=== PATIENT | female | born 1965 | race Caucasian/White ===

== ENCOUNTER 2017-11-25 20:52 | Emergency (ER) | payer BC ==
[2017-11-25 21:12] LABS: Bilirubin Negative (Negative); Blood, Urine Trace (Negative); Clarity CLEAR (Clear); Glucose, Urine (Dipstick) Negative (Negative); Leukocyte Moderate (Negative); Nitrite Negative (Negative); Protein, Urine (Dipstick) Negative (Neg-Trace); Specific Gravity, Urine 1.014 (1.002-1.036); Urobilinogen 0.2 mg/dL (0.2-1.0)
[2017-11-25 21:14] LABS: Bacteria/HPF None Seen HPF (None Seen); Hyaline Casts/LPF 0-3 HYALINE CAST LPF (0-3 Hyaline); Pathc Cast-AUWi Flag 0.43 (0-2.49); Squamous Epithelial 0-3 HPF (0-3)
[2017-11-25] MEDS ORDERED: Ketorolac Tromethamine 30 MG/ML VIAL ONE (21:20)
[2017-11-25 21:28] LABS: #Basophils 0.1 thou/uL (0.0-0.2); #Eosinphils 0.1 thou/uL (0.0-0.7); #Lymphocytes 1.4 thou/uL (1.20-3.40); #Monocytes 0.4 thou/uL (0.11-0.59); #Neutrophils 8.2 thou/uL (1.40-6.50); %Basophils 0.5 % (0.0-1.0); %Eosinophils 1.2 % (0.0-10.0); %Lymphocytes 13.8 % (21.0-51.0); %Monocytes 3.8 % (0.0-10.0); %Neutrophils 80.7 % (42.0-75.0); Hemoglobin 14.7 g/dL (12.0-16.0); Mean Corpuscular HGB CONC 34.1 g/dL (32.0-36.0); Mean Corpuscular Hemoglobin 28.1 pg (27.0-31.0); Mean Corpuscular Volume 82.6 fl (81.0-99.0); Mean Platelet Volume 7.5 fL (7.4-10.4); Platelet Count 280 thou/uL (130-400); RBC Distribution Width 12.5 % (11.5-14.5); Red Blood Cell (RBC) Count 5.22 mill/uL (4.20-5.40); White Blood Cell (WBC) Count 10.1 thou/uL (4.8-10.8)
[2017-11-25 21:48] LABS: ALT (SGPT) 58 U/L (8-55); AST (SGOT) 30 U/L (5-34); Albumin 4.5 g/dL (3.5-5.0); Alkaline Phosphatase 84 U/L (40-150); Anion Gap 14 mmol/L (10-20); BUN (Urea Nitrogen) 14 mg/dL (9.8-20.1); Bilirubin, Total 0.2 mg/dL (0.2-1.2); Calc. Creatinine Clearance 0 mL/min (70-130); Calcium 9.6 mg/dL (7.8-10.44); Carbon Dioxide 24 mmol/L (22-29); Chloride 104 mmol/L (98-107); Estimated GFR-MDRD 71; Globulin 3.2 g/dL (2.4-3.5); Glucose 134 mg/dL (70-105); Potassium 4.1 mmol/L (3.5-5.1); Protein, Total 7.7 g/dL (6.0-8.3); Sodium 138 mmol/L (136-145)
--- NOTE | 2017-11-25 21:55 | CT ---
CT OF THE ABDOMEN AND PELVIS 11/25/17 COMPARISON: None. HISTORY: Left sided flank pain with nausea. TECHNIQUE: Serial axial CT imaging is obtained at 5 mm intervals from the lung bases through the pubic symphysis without contrast. Coronal reformatted imaging obtained. FINDINGS: The lack of contrast limits assessment of the viscera, bowel, vascular structures and for lymphadenop athy. The imaged lung bases are unremarkable. No free intraperitoneal air or fluid is seen. There is diffuse hypodensity of the hepatic parenchyma suggesting steatosis. The spleen, pancreas, an d adrenal glands appear unremarkable. There is a probable small gallstone measuring in the 3-4 mm ran ge within the gallbladder lumen. No evidence for nephrolithiasis or obstructive uropathy is seen on t he right. There is a nonobstructing stone within the left renal pelvis measuring 9-10 mm. No evidence for obstr uctive uropathy is seen on the left. The appendix appears unremarkable. There is no evidence for bowel obstruction. There is a small hiata l hernia noted. There is a small fat containing umbilical hernia. The osseous structures demonstrate lower lumbar spine facet hypertrophy and multilevel lateral osteop hyte formation on the right involving the thoracolumbar junction. IMPRESSION: Nonobstructing stone within the left renal pelvis. No evidence for obstructive uropathy is seen on ei ther side. POS: COLT
== END 2017-11-25 22:55 | disposition home or self-care (01) ==
LOC: ERS 20:52
DX: N20.0 Calculus of kidney (principal); E03.9 Hypothyroidism, unspecified; K21.9 Gastro-esophageal reflux disease without esophagitis; E78.5 Hyperlipidemia, unspecified; Z79.899 Other long term (current) drug therapy
CPT/HCPCS: 74176; 80053; 81003; 81015; 85025; 87077; 87086; 93005; 94760; 96361; 96374; J1885